=== PATIENT | female | born 1965 ===

== ENCOUNTER → 2022-09-22 12:11 | Outpatient (CLI) | payer BC, SELFPAY ==
--- NOTE | ~2022-09-22 | CT_ITS ---
Noncontrast CT scan of the cervical spine Technique: Multiple contiguous axial [address] images of the cervical spine were obtained and rec onstructed in 2D sagittal and coronal planes on the acquisition scanner. Dose reduction technique was used on this scan by utilizing automated exposure control, adjustment of the mA and/or kV according to patient size. Clinical History: Pain Findings: Anterior fusion hardware is present extending from C5 to C7, with associated interbody fusi on devices. Minimal grade 1 anterolisthesis of C4 over C5 present. Remaining disc spaces are relative ly well-preserved. Scattered mild facet joint degenerative changes are present in the cervical spine. There are small posterior osteophytes at the C5-C6 and C6-C7 levels, without osbaldo canal stenosis. N o definite neural foraminal narrowing evident. No prevertebral soft tissue swelling. Impression: Anterior fusion from C5 to C7, as detailed above. Minimal grade 1 anterolisthesis of C4 over C5. Minimal degenerative spondylitic changes, as above. Reviewed, dictated and finalized at location . Impression: Anterior fusion from C5 to C7, as detailed above. Minimal grade 1 anterolisthesis of C4 over C5. Minimal degenerative spondylitic changes, as above.
== END ==
DX: M47.892 Other spondylosis, cervical region (principal); Z98.1 Arthrodesis status
CPT/HCPCS: 72125